=== PATIENT | male | born 1970 | race Caucasian/White ===

== ENCOUNTER 2017-02-24 10:18 | Emergency (ER) | payer BC ==
[2017-02-24] MEDS ORDERED: DOXYcycline CAP(*) 100 MG PO ONE (10:35)
--- NOTE | 2017-02-24 10:37 | ED ---
Bite Injury/Animal - HPI Summary HPI Summary: 46M presents with tick bite on right side of chest noticed today. He does not know how long the tick was on the area. He states he though he saw a rash on the area today but no rash is present on physical exam. He denies any fevers. - History of Current Complaint Chief Complaint: EDGeneral Stated Complaint: TICK Time Seen by Provider: 02/24/17 10:31 Pain Intensity: 0 PMH/Surg Hx/FS Hx/Imm Hx Endocrine/Hematology History: Denies: Hx Anticoagulant Therapy EENT History: Denies: Hx Hearing Problem Infectious Disease History: Denies: Traveled Outside the [place] in Last 30 Days - Family History Known Family History: Positive: Hypertension - Social History Alcohol Use: Occasionally Substance Use Type: Reports: None Smoking Status (MU): Never Smoked Tobacco Review of Systems Negative: Fever Negative: Chest Pain Negative: Shortness Of Breath Positive: Other - tick bite All Other Systems Reviewed And Are Negative: Yes Physical Exam Triage Information Reviewed: Yes Vital Signs On Initial Exam: Initial Vitals Temp Pulse Resp BP Pulse Ox 98.6 F 68 20 128/78 100 02/24/17 10:22 02/24/17 10:22 02/24/17 10:22 02/24/17 10:22 02/24/17 10:22 Vital Signs Reviewed: Yes Appearance: Positive: Well-Appearing Skin: Positive: Warm, Dry, Other - tick present on right side of chest Head/Face: Positive: Normal Head/Face Inspection Eyes: Positive: Normal, Conjunctiva Clear Respiratory/Lung Sounds: Positive: Clear to Auscultation, Breath Sounds Present Cardiovascular: Positive: Normal, RRR Diagnostics - Vital Signs Vital Signs Temp Pulse Resp BP Pulse Ox 02/24/17 10:22 98.6 F 68 20 128/78 100 - Laboratory Lab Statement: Any lab studies that have been ordered have been reviewed, and results considered in the medical decision making process. Bite Injury Course/Dx - Course Course Of Treatment: 46M presents with tick bite to right side of chest notice today. He does not know how long tick has been there. tick is a deer tick and appear engorged. removed with tick twister and got head. due to unknown length tick present treated with dose of doxcycline. patient understands and agrees with plan - Diagnoses Differential Diagnosis/HQI/PQRI: Positive: Puncture, Other - lyme, tick Provider Diagnosis: Tick bite with subsequent removal of tick Discharge - Discharge Plan Condition: Good Disposition: HOME Patient Education Materials: Tick Bite (ED) Referrals: No Primary Care Phys,NOPCP [Primary Care Provider] - Additional Instructions: You have been prophylactically treated for Lyme disease Return to ED if develop any rash or signs of infection
[2017-02-24 11:01] VITALS: BP 128/71
== END 2017-02-24 11:02 | disposition home or self-care (01) ==
LOC: ED 10:18
DX: S20.361A Insect bite (nonvenomous) of right front wall of thorax, initial encounter (principal); W57.XXXA Bitten or stung by nonvenomous insect and other nonvenomous arthropods, initial encounter; Y92.9 Unspecified place or not applicable
CPT/HCPCS: 99281; A9270-GY